=== PATIENT | female | born 1965 | race Hispanic/Latino ===

== ENCOUNTER → 2018-11-01 | Outpatient (CLI) | payer OTHER | END | disposition home or self-care (01) | LOC: RAH 15:47 | PROVIDERS: ATTEND Family Medicine | DX: M54.30 Sciatica, unspecified side (principal) | CPT/HCPCS: 72100 ==

== ENCOUNTER → 2025-05-13 | Outpatient (CLI) | payer OTHER ==
--- NOTE | 2025-05-13 19:14 | HMCIMG ---
STUDY: X-RAY OF THE LUMBAR SPINE, 3 VIEWS, INCLUDING L5S1 SPOT VIEW HISTORY: Arthritis with sciatica pain. TECHNIQUE: AP, lateral, and L5S1 spot views of the lumbar spine are submitted for interpretation. COMPARISON: None provided. FINDINGS: Bones and joints: Mild positional levoscoliosis of the lumbar spine. Multilevel degenerative changes are present with endplate osteophytic spurring and reduction in intervertebral disc heights, most notable in the lower lumbar levels, compatible with lumbar spondylosis. No acute compression fracture or destructive osseous lesion is identified. Sacrum and sacroiliac joints: Visualized sacrum and sacroiliac joints demonstrate no acute abnormality. Soft tissues: Paraspinal soft tissues are unremarkable on radiography. No abnormal radiopaque foreign body is seen. IMPRESSION: * Multilevel lumbar spondylosis with disc space narrowing and endplate osteophyte formation, which may account for the reported sciatica symptoms; if there is persistent or progressive radicular pain or neurologic deficit, further evaluation with lumbar spine MRI is recommended to assess neural element compression. * Mild positional levoscoliosis of the lumbar spine without radiographic evidence of acute fracture or destructive lesion. /[place]
== END | disposition home or self-care (01) ==
LOC: RAH 15:34
PROVIDERS: ATTEND Internal Medicine
DX: M47.816 Spondylosis without myelopathy or radiculopathy, lumbar region (principal); M54.40 Lumbago with sciatica, unspecified side; M25.78 Osteophyte, vertebrae; M41.86 Other forms of scoliosis, lumbar region; M48.061 Spinal stenosis, lumbar region without neurogenic claudication
CPT/HCPCS: 72100